=== PATIENT | male | born 1990 | race Caucasian/White ===

== ENCOUNTER 2021-12-10 16:30 | Emergency (ER) | payer OTHER ==
[~2021-12-10] VITALS: Ht 180.3 cm; Wt 127.0 kg
--- NOTE | 2021-12-10 17:40 | NUR ---
POC GLUCOSE- 113. WAS INFORMED.
--- NOTE | 2021-12-10 19:00 | NUR ---
Patient discharged to home in stable condition. Written and verbal after care instructions given. Patient verbalizes understanding of instructions. Stressed follow up or return to ER for worsening s/s.
[2021-12-10 19:50] VITALS: BP 120/76
== END 2021-12-10 19:02 | disposition home or self-care (01) ==
LOC: ER 17:02
DX: R06.02 Shortness of breath (principal); R73.9 Hyperglycemia, unspecified; F17.290 Nicotine dependence, other tobacco product, uncomplicated; E66.9 Obesity, unspecified; Z68.39 Body mass index [BMI] 39.0-39.9, adult
CPT/HCPCS: 71046; A4663